=== PATIENT | male | born 1945 | race Caucasian/White ===

== ENCOUNTER 2016-11-23 15:41 | Inpatient (IN) | payer OTHER ==
[~2016-11-23 15:41] MED LIST: ACETAMINOPHEN325 M2 PO; ADULT LOW DOSE81 M1 PO; ALLOPURINOL300 M1 PO; ALOE VESTA56 G1 TOP; ATORVASTATIN CA40 M1 PO; CALCIUM 500 +1 EAC9 PO; COSOPT EYE DROP10 ML LEFT EYE; DIGOXIN125 MC1 PO; ENALAPRIL MALE2.5 M1 PO; FLOMAX0.4 M1 PO; GLIPIZIDE5 M2 PO; GLUCOPHAGE1000 M1 PO; LASIX20 M1 PO; LATANOPROST2.5 M1 LEFT EYE; METHOCARBAMOL750 M1 PO; METOPROLOL SUCC25 M1 PO; MIRALAX17 G2 PO; MULTIVITAMINS1 EAC7 PO; NAPROXEN250 M1 PO; NEURONTIN300 M1 PO; OXYBUTYNIN CHLOR5 M2 PO; SILVADENE20 G1 TOP; TROSPIUM CHLORI20 M1 PO
[2016-11-23 18:30] LABS: BASO % 0.1 % (0-2); EOS % 0.1 % (0-7); HCT-HEMATOCRIT 31.1 % (36.0-53.5); HGB-HEMOGLOBIN 10.3 gm/dl (13.5-17.0); IMMATURE GRANULOCYTES ABSOLUTE 0.02 tho/cmm (0-0.03); IMMATURE GRANULOCYTES PERCENT 0.2 % (0-0.3); LYMPH % 17.9 % (20-45); LYMPH ABSOLUTE COUNT 1.7 tho/cmm (0.8-4.5); MCH (MEAN CORPUSCULAR HGB) 31.9 pg (28.0-32.0); MCHC MEAN CORPUSCULAR HGB CONC 33.1 % (32.0-36.0); MCV (MEAN CELL VOLUME) 96.3 fl (82.0-96.0); MEAN PLATELET VOLUME 9.1 cmc (9.4-12.4); MONO % 6.9 % (0-12); MONOCYTE ABSOLUTE COUNT 0.7 tho/cmm (0.0-1.2); NEUTROPHIL ABSOLUTE COUNT 7.2 tho/cmm (1.6-8.0); NEUTROPHIL-AUTOMATED 7.2 tho/cmm (1.6-8.0); NEUTROPHILS % 74.8 % (40-80); PLATELET COUNT 332 tho/cmm (150-450); RED BLOOD COUNT 3.23 mil/cmm (4.40-5.70); RED CELL DISTRIBUTION WIDTH 14.5 % (12.4-16.4); WHITE BLOOD COUNT 9.6 tho/cmm (4.0-10.0)
[2016-11-23 18:44] LABS: ANION GAP 16 mmol/L (0-20); BLOOD UREA NITROGEN 17 mg/dl (6-24); CALCIUM 9.3 mg/dl (8.5-10.5); CARBON DIOXIDE-VENOUS 23 mmol/L (22-32); CHLORIDE 97 mmol/l (96-110); CREATININE 0.94 mg/dl (0.60-1.30); GLUCOSE 103 mg/dL (70-110); SODIUM 132 mmol/L (135-145); eGFR VALUE FOR BLACK >90 mL/Min
[2016-11-23 18:59] LABS: PROCALCITONIN 0.14 ng/ml (0.05-0.09)
[2016-11-24] MEDS ORDERED: OS-CAL 500+D31 EAC1 PO (09:02)
[2016-11-24] MEDS ORDERED: MULTIVITAMINS1 EAC7 PO (09:02)
[2016-11-25 07:42] LABS: BASO % 0.5 % (0-2); EOS % 3.2 % (0-7); EOSINOPHIL ABSOLUTE COUNT 0.2 tho/cmm (0.0-0.7); HCT-HEMATOCRIT 33.8 % (36.0-53.5); IMMATURE GRANULOCYTES ABSOLUTE 0.01 tho/cmm (0-0.03); IMMATURE GRANULOCYTES PERCENT 0.2 % (0-0.3); LYMPH % 28.1 % (20-45); LYMPH ABSOLUTE COUNT 1.7 tho/cmm (0.8-4.5); MCH (MEAN CORPUSCULAR HGB) 31.9 pg (28.0-32.0); MCHC MEAN CORPUSCULAR HGB CONC 32.5 % (32.0-36.0); MEAN PLATELET VOLUME 9.1 cmc (9.4-12.4); MONO % 6.9 % (0-12); MONOCYTE ABSOLUTE COUNT 0.4 tho/cmm (0.0-1.2); NEUTROPHIL ABSOLUTE COUNT 3.7 tho/cmm (1.6-8.0); NEUTROPHIL-AUTOMATED 3.7 tho/cmm (1.6-8.0); NEUTROPHILS % 61.1 % (40-80); PLATELET COUNT 355 tho/cmm (150-450); RED BLOOD COUNT 3.45 mil/cmm (4.40-5.70); RED CELL DISTRIBUTION WIDTH 14.6 % (12.4-16.4)
[2016-11-25 07:57] LABS: ANION GAP 12 mmol/L (0-20); BLOOD UREA NITROGEN 12 mg/dl (6-24); CALCIUM 9.4 mg/dl (8.5-10.5); CARBON DIOXIDE-VENOUS 25 mmol/L (22-32); CHLORIDE 105 mmol/l (96-110); CREATININE 0.78 mg/dl (0.60-1.30); GLUCOSE 110 mg/dL (70-110); SODIUM 138 mmol/L (135-145); eGFR VALUE FOR BLACK >90 mL/Min
--- NOTE | 2016-11-25 13:51 | NUR ---
VIRTUAL CARE NOTE: VISITED W/ PT AT THIS TIME. HE IS IN GOOD SPIRITS, AND STATES HIS "NURSES HAVE BEEN AWESOME" DURING HIS STAY HERE AT [facility] STATES HE DOESNT HAVE ANY QUESTIONS OR IMMEDIATE NEEDS, AND UNDERSTANDS THAT HE NEEDS TO CALL THE STAFF OR VN IF HE HAS ANY NEEDS OR QUESTIONS. HAS GOTTEN UP FOR WALKS TO THE BATHROOM, SAT IN THE CHAIR, AND MOVED AROUND IN HIS ROOM THIS SHIFT. ENCOURAGED CONT'D AMBULATION. WILL CONTINUE TO MONITOR. ELECTRONIC CHART REVIEWED.
[2016-11-26 05:27] LABS: HGB-HEMOGLOBIN 10.3 gm/dl (13.5-17.0); PLATELET COUNT 368 tho/cmm (150-450)
--- NOTE | 2016-11-26 19:54 | NUR ---
VIRTUAL CARE NOTE: PT. IN BED, HAS LOTS OF VISITORS AROUND. STATES IS DOING PRETTY GOOD. IS DOING OKAY WITH PAIN AT THIS TIME. STATES WILL NEED IT BEFORE THE DRESSING CHANGES. STATES HAS WALKED X2 TODAY. ENCOURAGED TO AMBULATE MORE TO PROMOTE HEALING AND DECREASE PAIN. STATES WOULD LIKE TO WALK WITH GRANDCHILDREN WHEN THEY ARRIVE. EXPLANATION GIVEN THAT WOULD BE A GREAT IDEA. INSTRUCTE TO CALL FOR FUTURE NEEDS. STATES VERBAL AGREEMENT.
--- NOTE | 2016-11-27 17:59 | NUR ---
VIRUTAL CARE NOTE: PT SITTING ON CHAIR, STATES DOING OK TODAY, DISCHARGE PLAN DISCUSSED WITH PT, PT WILL HAVE [facility] AT DISCHARGE TO ASSIST WITH DRESSING CHANGES. PT HAS CHRONIC SUPRA CATH WHICH PT HAS MANAGEMENT BY SELF. PT DENIES ANY NEEDS OR CONCERNS.
[2016-11-28 05:05] LABS: BASO % 0.8 % (0-2); BASO ABSOLUTE COUNT 0.1 tho/cmm (0.0-0.2); EOS % 5.7 % (0-7); EOSINOPHIL ABSOLUTE COUNT 0.4 tho/cmm (0.0-0.7); HCT-HEMATOCRIT 31.1 % (36.0-53.5); HGB-HEMOGLOBIN 9.9 gm/dl (13.5-17.0); IMMATURE GRANULOCYTES ABSOLUTE 0.02 tho/cmm (0-0.03); IMMATURE GRANULOCYTES PERCENT 0.3 % (0-0.3); LYMPH ABSOLUTE COUNT 2.3 tho/cmm (0.8-4.5); MCH (MEAN CORPUSCULAR HGB) 31.5 pg (28.0-32.0); MCHC MEAN CORPUSCULAR HGB CONC 31.8 % (32.0-36.0); MEAN PLATELET VOLUME 8.9 cmc (9.4-12.4); MONO % 8.7 % (0-12); MONOCYTE ABSOLUTE COUNT 0.6 tho/cmm (0.0-1.2); NEUTROPHIL ABSOLUTE COUNT 3.4 tho/cmm (1.6-8.0); NEUTROPHIL-AUTOMATED 3.4 tho/cmm (1.6-8.0); NEUTROPHILS % 50.5 % (40-80); PLATELET COUNT 379 tho/cmm (150-450); RED BLOOD COUNT 3.14 mil/cmm (4.40-5.70); RED CELL DISTRIBUTION WIDTH 14.7 % (12.4-16.4); WHITE BLOOD COUNT 6.7 tho/cmm (4.0-10.0)
[2016-11-28 05:15] LABS: ANION GAP 11 mmol/L (0-20); BLOOD UREA NITROGEN 16 mg/dl (6-24); CALCIUM 9.3 mg/dl (8.5-10.5); CARBON DIOXIDE-VENOUS 29 mmol/L (22-32); CHLORIDE 105 mmol/l (96-110); CREATININE 0.83 mg/dl (0.60-1.30); GLUCOSE 91 mg/dL (70-110); POTASSIUM 4.5 mmol/L (3.7-5.1); SODIUM 140 mmol/L (135-145); eGFR VALUE FOR BLACK >90 mL/Min
--- NOTE | 2016-11-28 14:06 | NUR ---
VIRTUAL CARE NOTE: PT SITTING ON CHAIR, STATES DOING PRETTY GOOD. DISCHARGE PLAN REVIEWED WITH PT, WILL POSSIBLE DC TOMORROW WITH [facility] TO ASSIST WITH DRESSING CHANGES. PT DENIES ANY NEEDS OR CONCERNS.
[2016-11-29] MEDS ORDERED: BACTRIM DS TAB1 EAC2 PO (10:13)
[2016-11-29] MEDS ORDERED: NORCO 5-325 TA1 EACH PO (10:14)
[2016-11-29] MEDS ORDERED: DO NOT RESUME: (10:16)
[2016-11-29] MEDS ORDERED: LIPITOR40 M1 PO (10:17)
[2016-11-29] MEDS ORDERED: SULFAMYLON SOL250 M1 EXT (12:39)
== END 2016-11-29 14:10 | disposition home health service (06) | DRG 580 ==
LOC: 5WD 15:41
PROVIDERS: Internal Medicine; Internal Medicine Cardiovascular Disease; Physician Assistant; ADMIT Hospitalist
PROC: 0Y950ZZ Drainage of Right Inguinal Region, Open Approach (ICD-10-PCS; principal; 2016-11-23)
PROC: 5A09357 Assistance with Respiratory Ventilation, Less than 24 Consecutive Hours, Continuous Positive Airway Pressure (ICD-10-PCS; 2016-11-25)
DX: L02.214 Cutaneous abscess of groin (principal); I50.22 Chronic systolic (congestive) heart failure; I11.0 Hypertensive heart disease with heart failure; E11.9 Type 2 diabetes mellitus without complications; I25.10 Atherosclerotic heart disease of native coronary artery without angina pectoris; Z95.1 Presence of aortocoronary bypass graft; Z86.73 Personal history of transient ischemic attack (TIA), and cerebral infarction without residual deficits; H40.9 Unspecified glaucoma; E78.00 Pure hypercholesterolemia, unspecified; N40.1 Benign prostatic hyperplasia with lower urinary tract symptoms; N39.498 Other specified urinary incontinence; G47.33 Obstructive sleep apnea (adult) (pediatric); M51.36 Other intervertebral disc degeneration, lumbar region; Z87.891 Personal history of nicotine dependence; L03.314 Cellulitis of groin; Z79.84 Long term (current) use of oral hypoglycemic drugs; E78.5 Hyperlipidemia, unspecified; Z85.46 Personal history of malignant neoplasm of prostate; Z88.8 Allergy status to other drugs, medicaments and biological substances
CPT/HCPCS: J1650; J2270; J2543; J3370; J7030; J7050; J7999; Q9967